=== PATIENT | male | born 2000 | race Caucasian/White ===

== ENCOUNTER 2021-11-29 16:40 | Emergency (ER) | payer OTHER ==
[~2021-11-29] VITALS: Ht 185.4 cm; Wt 79.4 kg
[~2021-11-29 16:40] MED LIST: SUDAFED PE PRE1 EAC1 PO
== END 2021-11-29 18:26 | disposition home or self-care (01) ==
LOC: ER 16:40
DX: Z04.1 Encounter for examination and observation following transport accident (principal); V49.40XA Driver injured in collision with unspecified motor vehicles in traffic accident, initial encounter
CPT/HCPCS: 99283